=== PATIENT | male | born 1985 | race Caucasian/White ===

== ENCOUNTER 2017-10-24 16:08 | Outpatient (CLI) | END 2017-10-24 16:09 | disposition home or self-care (01) | LOC: FCC-LAB 16:08 | PROVIDERS: ATTEND Family Medicine | DX: F90.8 Attention-deficit hyperactivity disorder, other type (principal); Z51.81 Encounter for therapeutic drug level monitoring | CPT/HCPCS: 80306 ==

== ENCOUNTER 2018-01-13 14:01 | Outpatient (CLI) | END 2018-01-13 14:02 | disposition home or self-care (01) | LOC: FCC-LAB 14:01 | PROVIDERS: ATTEND Family Medicine | DX: R39.15 Urgency of urination (principal); R10.9 Unspecified abdominal pain | CPT/HCPCS: 87086 ==

== ENCOUNTER 2018-01-19 16:11 | Outpatient (CLI) ==
--- NOTE | 2018-01-19 18:00 | CT ---
Exam: CT scan of the abdomen pelvis without contrast. Date: 01/19/2018. Comparison: None. HISTORY: Penile pain. TECHNIQUE: Helical scan of the abdomen pelvis was performed without contrast. FINDINGS: The lung bases are clear. The lumbar spine and bony pelvis are within normal limits. The spleen and liver have a uniform attenuation. The gallbladder, stomach, pancreas and adrenal glan ds are normal. The kidneys have a normal morphology. No calculi or hydronephrosis is seen. No retr operitoneal adenopathy is present. Aorta does not exceed 3 cm. The small bowel and appendix are nor mal. The colon, pelvic sidewall and bladder are normal. There is no free pelvic fluid. Prostate, r ectum inguinal regions are normal. Impression: No acute findings in the abdomen or pelvis; no evidence of renal calculi or obstruction.
== END 2018-01-19 16:12 | disposition home or self-care (01) ==
LOC: RAD 16:11
PROVIDERS: ATTEND Family Medicine
DX: N48.89 Other specified disorders of penis (principal); R30.0 Dysuria
CPT/HCPCS: 74176; 81001; 87800

== ENCOUNTER 2018-04-13 13:43 | Outpatient (CLI) | END 2018-04-13 13:44 | disposition home or self-care (01) | LOC: FCC-LAB 13:43 | PROVIDERS: ATTEND Family Medicine | DX: R05 Cough (principal); B08.5 Enteroviral vesicular pharyngitis | CPT/HCPCS: 87502; 87651 ==